=== PATIENT | female | born 1980 | race Two or more races ===

== ENCOUNTER → 2025-01-06 | Outpatient (CLI) | payer BC, MEDICAID, SELFPAY ==
--- NOTE | 2025-01-06 10:37 | XR_ITS ---
Examination: Bilateral knees 2 views Right lateral knee left lateral knee 2 views Bilateral axial knees single view TECHNIQUE: Bilateral AP knees standing single view, bilateral PA knees standing single view flexion Standing right lateral knee left lateral knee 2 views Bilateral axial knees single view total 5 views Date and time: January 06, 2025 1132 hours INDICATIONS: Bilateral knee pain, right knee replacement 2020 FINDINGS: Prominent osteopenia Medial right knee hemiarthroplasty with satisfactory alignment Significant osteoarthritis moderate to advanced lateral joint space right knee and patellofemoral joint right knee Advanced medial joint space left knee Moderate to advanced osteoarthritis left patellofemoral joint IMPRESSION: Significant osteoarthritis lateral and patellofemoral joints right knee Advanced medial joint space narrowing left knee Moderate to advanced osteoarthritis left patellofemoral joint
== END | disposition home or self-care (01) ==
PROVIDERS: PCP Physician Assistant; Referring Provider Orthopaedic Surgery Adult Reconstructive Orthopaedic Surgery; Visit Provider Orthopaedic Surgery Adult Reconstructive Orthopaedic Surgery
DX: M17.0 Bilateral primary osteoarthritis of knee (principal); M25.862 Other specified joint disorders, left knee
CPT/HCPCS: 73564

== ENCOUNTER 2025-01-17 08:26 | Outpatient (AMB) | payer BC, MEDICAID, SELFPAY ==
--- NOTE | 2025-01-17 08:41 | PD.ORTHCLVIS ---
Vital signs 01/17/25 08:42 Height 1.63 m Height Method Measured Weight 104.78 kg Weight Measurement Method Standing Scale BMI 39.6 BP 120/80 Blood Pressure Source Automatic Cuff Blood Pressure Location Left Upper Arm Position Sitting Respiration 18 Pulse 74 Pulse Source Monitor Temp 97.6 F Temp Source Temporal Artery Scan Pulse Oximetry (%) 96 Oxygen Delivery Method Room Air Med/Allergies Allergies & Medications Allergies No Known Allergies Allergy (Verified 01/17/25 08:42) Medication Reconciliation amlodipine 5 mg tablet 5 mg PO QDAY 10/01/18 [History Confirmed 01/17/25] loratadine 10 mg tablet 10 mg PO QDAY PRN Allergy Symptoms 10/01/18 [History Confirmed 01/17/25] hydrochlorothiazide 12.5 mg capsule 12.5 mg PO QAM 12/21/20 [History Confirmed 01/17/25] lisinopril 20 mg tablet 20 mg PO QDAY 12/21/20 [History Confirmed 01/17/25] docusate sodium 100 mg capsule (DOK) 100 mg PO QDAY #30 caps 12/26/20 [Rx Confirmed 01/17/25] hydrocodone 10 mg-acetaminophen 325 mg tablet 1 tab PO Q6H PRN MODERATE PAIN 4-6 #40 tabs 12/26/20 [Rx Confirmed 01/17/25] rivaroxaban 10 mg tablet (Xarelto) 10 mg PO Q24H #11 tabs 12/26/20 [Rx Confirmed 01/17/25] meloxicam 7.5 mg tablet 7.5 mg PO QDAY #45 tabs 01/17/25 [Rx] Exam Exam Patient is in no acute distress and is cooperative with the examination today. Breathing is nonlabored. Patient has a normal mood and affect. Bilateral extremities were evaluated and demonstrates sensation intact to light touch. Palpable pedal pulses are present. No significant edema is present. Bilateral hips were examined. The patient has no pain with log roll of the hips. Internal rotation to 30 degrees and external rotation to 30 degrees is painless. Negative FADIR. Right knee was examined today. Right knee incisions clean dry intact. Range of motion 0 110 degrees Left knee was examined today. The left knee is in varus alignment. Range of motion from 0-115 degrees. Knee is stable to varus and valgus as well as AP translation with <5mm. Patient has a negative McMurrays. There is no pain with patellofemoral compression and no crepitus noted. The knee is tender to palpation medially. Assessment and Plan Problem List (1) Arthritis of knee, right: Status: Acute Plan: Patient is a pleasant 44-year-old female with a right uni and a left knee arthritis and left knee pain. She has significant knee pain and has not had any injections or conservative treatment on this. We discussed that we would try conservative treatment first. He is a candidate for a unicompartmental knee should the pain worsen and not respond to conservative treatment. We also discussed weight loss in great detail. 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 (7005-4246) MA Intake Visit Data Collection New Patient or Established: New Patient (never been to [facility]) Reason for Visit:: LEFT KNEE PAIN Seen by Clinical Staff ONLY (RN/MA): No Food Prep Worker Required: No PCP or OBGYN visit in last 3 months: Yes Hx Now: No Do You Feel Safe at Home: Yes Authorities Contacted: N/A Questionairres Past Medical History Past Medical History Have you ever been diagnosed with any of the following: Neurological Problems Seizures: No Migraine: Yes Cardiology Problems Hypercholesterolemia: No Congestive Heart Failure: No Hypertension: Yes Respiratory Problems Chronic Obstructive Pulmonary Disease (COPD): No Tuberculosis: No (patient gets cxr-neg, due to ppd shows +, did take meds for prevention) Sleep Apnea: No Smoking: No Smoking Cessation Counseling: No Smoking Exposure: No Stomache/Intestinal Problems Hepatitis: No Gastrointestinal Bleed: No Ulcer: No Gastroesophageal Reflux Disease: No Genital/Urinary Problems Renal Disease: No Reproductive Problems Breast Cancer: No Endometriosis: No Genital Herpes: No Gonorrhea: No Pelvic Inflammatory Disease: No Previous Pregnancies: Yes (X5) Syphilis: No Musculoskeletal Problems Arthritis: Yes (right knee) Endocrine Problems Diabetes Mellitus Type 1: No Diabetes Mellitus Type 2: No Hypoglycemia: No Hyperthyroidism: No Blood Problems Anemia: No Other Problems Hospitalization: No Shingles: No Falls: No Blood Transfusions: No Blood Transfusion Reaction: No Anesthesia Reactions: No Organ Transplant: No MRSA: No VRSA: No Human Immunodeficiency Virus (HIV): No Chicken Pox: Yes (child age) Measles: No Mumps: No Rubella ([place] Measles): No Pertussis: No Clostridium Difficile: No Cancer: No Surgical History Hysterectomy: No Subjective Visit Visit for: new patient and knee Immunization / Flu Flu Vaccine in the Last 12 Months: No Flu Vaccine Exclusion Criteria: Refused by Patient History of Present Illness Chief complaint: LEFT KNEE PAIN Date of injury / onset of symptoms: 2 YEARS Mei is a pleasant 44-year-old female with left knee pain. This has been ongoing for a while. She had a right unicompartmental knee done [address] Yee. She is doing reasonably well from this. She has left knee pain that has been bothering her for quite some time. 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
[2025-01-17 08:42] VITALS: BP 120/80; PULSE 74; RESP 18; TEMP 36.4; O2SAT 96; BMI 39.6
== END 2025-01-17 09:00 | disposition home or self-care (01) ==
LOC: HODSRG 08:26
PROVIDERS: PCP Physician Assistant; Referring Provider Physician Assistant; Supervising Provider Orthopaedic Surgery Adult Reconstructive Orthopaedic Surgery; Visit Provider Orthopaedic Surgery Adult Reconstructive Orthopaedic Surgery
DX: M17.11 Unilateral primary osteoarthritis, right knee (principal); M25.562 Pain in left knee; I10 Essential (primary) hypertension
CPT/HCPCS: 99203; G0463

== ENCOUNTER 2025-04-26 14:52 | Outpatient (AMB) | payer BC, MEDICAID, SELFPAY ==
--- NOTE | 2025-04-26 15:05 | ORTHONT_ITS ---
Vital signs 04/26/25 15:06 Height 1.63 m Height Method Measured Weight 102.54 kg Weight Measurement Method Standing Scale BMI 38.5 BP 115/75 Blood Pressure Source Automatic Cuff Blood Pressure Location Left Upper Arm Position Sitting Respiration 18 Pulse 70 Pulse Source Monitor Temp 97.8 F Temp Source Temporal Artery Scan Pulse Oximetry (%) 97 Oxygen Delivery Method Room Air Med/Allergies Allergies & Medications Allergies No Known Allergies Allergy (Verified 04/26/25 15:07) Medication Reconciliation amlodipine 5 mg tablet 5 mg PO QDAY 10/01/18 [History Confirmed 04/26/25] loratadine 10 mg tablet 10 mg PO QDAY PRN Allergy Symptoms 10/01/18 [History Confirmed 04/26/25] hydrochlorothiazide 12.5 mg capsule 12.5 mg PO QAM 12/21/20 [History Confirmed 04/26/25] lisinopril 20 mg tablet 20 mg PO QDAY 12/21/20 [History Confirmed 04/26/25] docusate sodium 100 mg capsule (DOK) 100 mg PO QDAY #30 caps 12/26/20 [Rx Confirmed 04/26/25] hydrocodone 10 mg-acetaminophen 325 mg tablet 1 tab PO Q6H PRN MODERATE PAIN 4-6 #40 tabs 12/26/20 [Rx Confirmed 04/26/25] rivaroxaban 10 mg tablet (Xarelto) 10 mg PO Q24H #11 tabs 12/26/20 [Rx Confirmed 04/26/25] meloxicam 7.5 mg tablet 7.5 mg PO QDAY #45 tabs 01/17/25 [Rx Confirmed 04/26/25] Exam Exam Patient is in no acute distress and is cooperative with the examination today. Breathing is nonlabored. Patient has a normal mood and affect. Bilateral extremities were evaluated and demonstrates sensation intact to light touch. Palpable pedal pulses are present. No significant edema is present. Bilateral hips were examined. The patient has no pain with log roll of the hips. Internal rotation to 30 degrees and external rotation to 30 degrees is painless. Negative FADIR. Right knee was examined today. Right knee incisions clean dry intact. Range of motion 0 110 degrees Left knee was examined today. The left knee is in varus alignment. Range of motion from 0-115 degrees. Knee is stable to varus and valgus as well as AP translation with <5mm. Patient has a negative McMurrays. There is no pain with patellofemoral compression and no crepitus noted. The knee is tender to pa lpation medially. Left knee xrays demonstrate complete joint space of the medial compartment Assessment and Plan Problem List (1) Arthritis of knee, right: Status: Acute Plan: Patient is a pleasant 44-year-old female with a right uni and a left knee arthritis and left knee pain. She has significant knee pain and has not had any injections or conservative treatment on this. We discussed that we would try conservative treatment first. He is a candidate for a unicompartmental knee should the pain worsen and not respond to conservative treatment. We also discussed weight loss in great detail. Recommend knee cortisone injection as patient would like to proceed with conservative treatment at this time. The risks and benefits of the procedure were reviewed with the patient and patient gave verbal consent to continue with the procedure. Procedure: performed by Dr. Ferris Using sterile technique the left knee was thoroughly prepped with alcohol, and approximately 1 cc of Depo-Medrol 80mg/mL and 4 cc of 0.2% ropivacaine was injected without resistance into the medial tibial femoral joint space. The patient tolerated the procedure. Office Procedures GNS Level of Care Nursing/Assessment Patient Status: Established Patient Nursing Assessment/Reassesment: Medication Reconciliation, Update PMH in EMR and Vital Signs Coordination of Care: Complex Care and Chronic Disease 1-5, Education Complex Pt/Fam, Consent,records obtained, informed consent, Results/Orders obtained and Staff clarify orders Established Patient Charge Established Patient Point Assignment: 95 Established Patient Point Charge: EP Level 3 (80-115) Surgical Proc/IM SQ injection Minor Surgical Procedure: Yes (KNEE INJECTION ) Medication Given Medication Given Medication Given: Yes Documented Dose Given: 1 Route: Infiitration Medication Given Medication Given Medication Given: Yes Documented Dose Given: 4 Route: Infiitration Office Meds methylprednisolone acetate 80 mg/mL suspension for injection Performing Provider: Will Ferris MD Performing Location: [facility] Administered by: Will Ferris MD on 04/26/25 15:28 Dose Route Admin Location Dispensed Lot Number Expiration Date Pack age [facility] Dragline Operator Helper 80 mg intra-articular KNEE 1 mL [id number] 01/12/27 [address]-2 7 [id number] [employer] ropivacaine (PF) 2 mg/mL (0.2 %) injection solution Performing Provider: Will Ferris MD Performing Location: [facility] Administered by: Will Ferris MD on 04/26/25 15:28 Dose Route Admin Location Dispensed Lot Number Expiration Date Pack age [facility] [place] Dragline Operator Helper 20 mL Infiltration KNEE 20 mL [id number] 07/15/27 79327-086-22 [id number] MA Intake Visit Data Collection New Patient or Established: Established Patient (seen at [facility] within 3 years) Reason for Visit:: LEFT KNEE INJECTION Seen by Clinical Staff ONLY (RN/MA): No Auto Body Technician Required: No PCP or OBGYN visit in last 3 months: Yes Hx Now: No Do You Feel Safe at Home: Yes Authorities Contacted: N/A Questionairres Past Medical History Past Medical History Have you ever been diagnosed with any of the following: Neurological Problems Seizures: No Migraine: Yes Cardiology Problems Hypercholesterolemia: No Congestive Heart Failure: No Hypertension: Yes Respiratory Problems Chronic Obstructive Pulmonary Disease (COPD): No Tuberculosis: No (patient gets cxr-neg, due to ppd shows +, did take meds for prevention) Sleep Apnea: No Smoking: No Smoking Cessation Counseling: No Smoking Exposure: No Stomache/Intestinal Problems Hepatitis: No Gastrointestinal Bleed: No Ulcer: No Gastroesophageal Reflux Disease: No Genital/Urinary Problems Renal Disease: No Reproductive Problems Breast Cancer: No Endometriosis: No Genital Herpes: No Gonorrhea: No Pelvic Inflammatory Disease: No Previous Pregnancies: Yes (X5) Syphilis: No Musculoskeletal Problems Arthritis: Yes (right knee) Endocrine Problems Diabetes Mellitus Type 1: No Diabetes Mellitus Type 2: No Hypoglycemia: No Hyperthyroidism: No Blood Problems Anemia: No Other Problems Hospitalization: No Shingles: No Falls: No Blood Transfusions: No Blood Transfusion Reaction: No Anesthesia Reactions: No Organ Transplant: No MRSA: No VRSA: No Human Immunodeficiency Virus (HIV): No Chicken Pox: Yes (child age) Measles: No Mumps: No Rubella ([place] Measles): No Pertussis: No Clostridium Difficile: No Cancer: No Surgical History Hysterectomy: No Subjective Visit Visit for: follow up visit and knee Immunization / Flu Flu Vaccine in the Last 12 Months: No Flu Vaccine Exclusion Criteria: Refused by Patient History of Present Illness Chief complaint: LEFT KNEE INJECTION Date of injury / onset of symptoms: 2 YEARS Mei is a pleasant 44-year-old female with left knee pain. This has been ongoing for a while. She had a right unicompartmental knee done [address] Yee. She is doing reasonably well from this. She has left knee pain that has been bothering her for quite some time. The pain is primarily medial. 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
[2025-04-26 15:06] VITALS: BP 115/75; PULSE 70; RESP 18; TEMP 36.6; O2SAT 97; BMI 38.5
== END 2025-04-26 15:31 | disposition home or self-care (01) ==
LOC: HODSRG 14:52
PROVIDERS: PCP Physician Assistant; Referring Provider Physician Assistant; Supervising Provider Orthopaedic Surgery Adult Reconstructive Orthopaedic Surgery; Visit Provider Orthopaedic Surgery Adult Reconstructive Orthopaedic Surgery
DX: M17.12 Unilateral primary osteoarthritis, left knee (principal)
CPT/HCPCS: 20610; 99213; J1010; J2795; G0463